=== PATIENT | male | born 1975 | race Caucasian/White ===

== ENCOUNTER 2017-11-01 08:15 | Emergency (ER) | payer SELFPAY ==
[~2017-11-01] VITALS: Ht 175.3 cm; Wt 84.8 kg
[2017-11-01 08:17] VITALS: BP 144/62
--- NOTE | 2017-11-01 08:23 | NUR ---
PT AMBULATES TO BED 4 Addendum: 11/01/17 at 0828 by [email or web address] REPORT GIVEN TO JAZMIN GREEN.
--- NOTE | 2017-11-01 08:26 | NUR ---
DR FRANKLIN EVALUATING PT AT BEDSIDE
--- NOTE | 2017-11-01 08:30 | NUR ---
42 YO M BIB W/ C/O LEFT KNEE SWELLING AND PAIN/STIFFNESS X 1 WEEK THIS EPISODE. PT REPORTS THIS HAS BEEN AN ONGOING ISSUE FOR 10 YEARS. DENIES EVER HAVING AN INJURY TO THE KNEE. DENIES N/V/FEVERS. REPORTS THE PAIN IS INTERMITTENT, 4/10. AAOX4, GCS 15, CMS INTACT, RR EVEN UNLABORED. AMBULATORY W/ STEADY GAIT. PT NEEDS MET, SAFETY PRECAUTIONS IN PLACE, WILL CONTINUE TO MONITOR.
[2017-11-01 09:00] VITALS: BP 127/84
== END 2017-11-01 09:00 | disposition home or self-care (01) ==
LOC: MED 08:15
DX: M25.462 Effusion, left knee (principal)
CPT/HCPCS: 99283

== ENCOUNTER 2017-12-22 03:10 | Emergency (ER) | payer MEDICAID ==
[~2017-12-22] VITALS: Ht 175.3 cm; Wt 85.7 kg
[2017-12-22 03:10] VITALS: BP 134/87
--- NOTE | 2017-12-22 03:10 | NUR ---
PT PRESENTS TO ED WITH PINEDO TO RIGHT SIDE ONLY X30 DAYS. PT DENIES NUMBNESS/TINGLING, LOSS OF VISION. PINEDO PAIN 10/10. PT ALSO STATES PINEDO'S CAUSE TOOTH SENSITIVITIY. VSS. POSITIONED IN BED FOR COMFORT. SIDE RAIL UP. AT BEDSIDE. ER MD AWARE. CONTINUE TO MONITOR.
--- NOTE | 2017-12-22 03:10 | NUR ---
PATIENT AMBULATED TO ER BED 2.
[2017-12-22] MEDS ORDERED: APAP/BUTAL/CAFF 325/50/40 MG 1 TAB PO ONE (03:20)
[2017-12-22] MEDS ORDERED: LEVOFLOXACIN IV ONE (03:49)
[2017-12-22] MEDS ORDERED: D5W IV ONE (03:49)
[2017-12-22] MEDS ORDERED: MORPHINE SULFATE 4 MG/ML SYR IM ONE (03:50)
[2017-12-22] MEDS ORDERED: IBUPROFEN 800 MG TAB PO ONE (03:55)
[2017-12-22] MEDS ORDERED: MORPHINE SULFATE 4 MG/ML SYR ONE (04:04)
[2017-12-22] MEDS ORDERED: IBUPROFEN 800 MG TAB ONE (04:05)
[2017-12-22] MEDS ORDERED: SUMAtriptan 6 MG/0.5 ML VIAL SUBQ ONE ×2 (04:25→04:35)
--- NOTE | 2017-12-22 04:50 | NUR ---
PT TAKEN TO CT WITH TECH.
[2017-12-22 05:27] VITALS: BP 134/87
--- NOTE | 2017-12-22 05:27 | NUR ---
Patient discharged with v/s stable. Written and verbal after care instructions given and explained. Patient alert, oriented and verbalized understanding of instructions. Ambulatory with . All questions addressed prior to discharge. ID band removed. Patient advised to follow up with PMD. Rx of Ibuprofen and Imitrex given. Patient educated on indication of medication including possible reaction and side effects. Opportunity to ask questions provided and answered.
== END 2017-12-22 05:27 | disposition home or self-care (01) ==
LOC: MED 03:10
DX: G43.909 Migraine, unspecified, not intractable, without status migrainosus (principal)
CPT/HCPCS: 70450; 96372; 99284; J2270; J3030; J1956